=== PATIENT | female | born 1995 | race Caucasian/White ===

== ENCOUNTER → 2020-02-07 | Emergency (ER) | payer SELFPAY ==
[~2020-02-07] VITALS: Ht 167.6 cm; Wt 122.7 kg
[~2020-02-07] MED LIST: ATIVAN1 MG PO; FLAGYL500 MG PO; HYDROCODON-ACE1 EAC7 PO
[2020-02-07 06:04] VITALS: BP 145/90; Ht 167.6 cm; Wt 122.7 kg
[2020-02-07 07:49] LABS: HCG URINE NEGATIVE (NEGATIVE)
[2020-02-07 07:50] LABS: BILIRUBIN NEGATIVE (NEGATIVE); GLUCOSE NEGATIVE (NEGATIVE); KETONE NEGATIVE (NEGATIVE); NITRITE NEGATIVE (NEGATIVE); SPECIFIC GRAVITY 1.005 (1.005-1.020); UROBILINOGEN NORMAL (NORMAL)
[2020-02-07 07:52] LABS: BACTERIA FEW /hpf (NEGATIVE); EPITHELIAL CELLS 0-5 /hpf (0-5); RED CELLS - URINE 0-5 /hpf (0-5); WHITE CELLS - URINE 0-5 /hpf (NEGATIVE)
== END | disposition home or self-care (01) ==
LOC: D.ER 05:56
PROVIDERS: Emergency Medicine
DX: T74.21XA Adult sexual abuse, confirmed, initial encounter (principal); F43.0 Acute stress reaction; N73.9 Female pelvic inflammatory disease, unspecified